=== PATIENT | female | born 1990 | race Caucasian/White ===

== ENCOUNTER 2025-04-23 10:10 | Outpatient (AMB) | payer OTHER, SELFPAY ==
--- NOTE | 2025-04-23 10:25 | MHC.OFFVIS ---
Intake Visit Reasons: 6 month fu Allergies clarithromycin (From BIAXIN) Allergy (Unknown, Unverified 04/23/25 10:27) NAUSEA & VOMITING Medication List - Last Reconciled 04/23/25 by Nataliya Torres CNP bupropion HCl XL 150 mg PO QAM cetirizine (Zyrtec) 10 mg PO DAILY PRN cholecalciferol (vitamin D3) 25 mcg PO DAILY famotidine (Pepcid) 20 mg PO DAILY levothyroxine 50 mcg PO DAILY norethindrone (contraceptive) 0.35 mg PO DAILY sertraline 200 mg PO DAILY spironolactone 50 mg PO BID HPI Comments Details: She was doing okay. She was hoping to have her son weaned completely from this month, around his [age] birthday, and was interested in starting medication for FM after that. She had her son (Wilmer) on 05/04/2022. Fibromyalgia pains were about the same. Some pains to neck and shoulders. Occasional numbness and mild weakness in hands that comes and goes, L > R, was better. Occasional exacerbations of LBP with radiation down either right or left leg, usually flares ups without specific trigger every 3-4 months with burning-type pain that can last between 1-7 days, stretching helps some. Brain fog and concentration difficulties are better, comes and goes. 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 Mood was okay, has not started with therapist yet. Sleep was okay, not using CPAP. h/o pain to back, neck, shoulders, arms, legs, sore muscles, and fatigue since 2013. Diagnosed with fibromyalgia by PCP in 2017. RA/autoimmune came back negative. Tried multiple medications in the past, Lyrica (75mg BID) helped, stopped after 9 months due to change of insurance and . Side effects with amitriptyline (tired), gabapentin (headaches), and venlafaxine (withdrawal symptoms). [facility] Medical History (Updated 04/23/25 @ 10:27 by Nataliya Torres CNP) Carpal tunnel syndrome, bilateral upper limbs Carpal tunnel syndrome Fibromyalgia Anxiety Review of Systems Const Denies chills, Denies daytime sleepiness, Reports difficulty sleeping, Denies fatigue, Denies fever(s), Denies frequent falls, Denies headache(s), Denies increased appetite, Denies poor appetite, Denies snoring, Denies weakness, Denies weight gain and Denies weight loss Eyes Denies loss of vision ENT Denies vertigo, Denies dizziness, Denies headache(s) and Reports neck pain Card Denies chest pain at rest, Denies chest pain with activity, Denies syncope, Denies leg edema, Denies palpitations, Denies dyspnea and Denies dyspnea on exertion Resp Denies cough, Denies dyspnea, Denies dyspnea on exertion and Denies snoring GI Denies abdominal pain, Denies constipation, Denies heartburn, Denies diarrhea and Denies nausea Denies urinary frequency, Denies urinary incontinence and Denies urinary urgency Musc Denies abnormal gait, Reports back pain, Reports myalgias, Reports arthralgias, Reports neck pain, Reports numbness and Reports tingling Neuro Denies abnormal gait, Denies vertigo, Denies dizziness, Denies syncope, Denies frequent falls, Denies headache(s), Denies lack of coordination, Denies loss of vision, Denies memory loss, Reports numbness, Denies Other visual disturbances, Denies restless legs, Denies seizure-like activity, Reports tingling, Denies paresthesias, Denies tremor(s) and Denies weakness Psych Reports anxiety, Denies depression, Denies auditory hallucinations, Denies memory loss and Denies visual hallucinations Endo Denies fatigue and Denies palpitations Physical Exam Const Other: General Appearance:? normal, in no acute distress. Heart:? S1, S2 normal, no murmurs. Lungs:? clear anteriorly and posteriorly. Musculoskeletal:? normal. Extremities:? no edema. Psych:? alert, oriented, cognitive function intact, cooperative with exam. Neuro Other: Abnormal Neurological Findings: Generalized LUE weakness 5-/5, L finger spread 5-/5.?? Mental Status: alert and oriented X 3. Normal attention, orientation, memory, and affect. Cranial Nerves: Pupils are equal, round, and reactive to light. External ocular muscles are intact. Visual nguyen are full, no ptosis. Face is symmetrical, no facial weakness or droop. Facial sensations are normal. Tongue protrudes in midline. Palate elevates symmetrically. Shoulder shrugging is normal Motor Examination: As above, otherwise normal muscle tone, bulk and strength. No atrophy or fasciculations. No drift of the extended upper extremities. DTR 2+. Plantars are flexor. Sensory Exam: Normal light touch, temperature, pinprick, vibration, and joint-position sensations. Rhomberg sign is absent. Coordination: No ataxia. No titubation. Gait Exam: Within normal limits. Cerebellar Signs: [id number] and xcgs-bz-[id number] is normal. No dysdiadochokinesia. Extrapyramidal System: No tremor, rigidity with normal facial expressions. No bradykinesia. No bradyphrenia. Normal arm swing and posture. No propulsion or retropulsion. Speech: Normal. No dysphasia or dysarthria. Results Reviewed Results Reviewed: NCV/EMG ALL 12/12/18 Normal motor and sensory nerve conduction velocities in the upper and lower extremities. Normal EMG in the right C5-T1 and right L4-S1 innervated muscles. Assessment & Plan Assessment & Plan (1) Fibromyalgia: Code(s): M79.7 - Fibromyalgia Category: Medical Plan: She was still her son, but was hoping to have her son weaned completely from this month. She was interested in starting medication for FM when she was done . Follow up when done to discuss medications. She tried amitriptyline, venlafaxine, and gabapentin in the past with side effects. She tried Lyrica in the past, which worked well, and was stopped due to and . Plan Side effects with amitriptyline (tired), gabapentin (headaches), and venlafaxine (withdrawal symptoms). Tried Lyrica in the past, which worked well - but stopped due to Coding Level of Care Code Est Pt Level 3 (95298) Diagnoses Fibromyalgia M79.7
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
== END 2025-04-23 10:37 | disposition home or self-care (01) ==
LOC: HO.HSM 10:11
PROVIDERS: PCP Physician Assistant Medical; Visit Provider Registered Nurse
DX: M79.7 Fibromyalgia (principal)
CPT/HCPCS: 99213

== ENCOUNTER 2025-07-23 09:44 | Outpatient (AMB) | payer OTHER, SELFPAY ==
--- NOTE | 2025-07-23 10:10 | A.OFFVIS_ITS ---
Intake Visit Reasons: 2M FM Allergies clarithromycin (From BIAXIN) Allergy (Unknown, Unverified 04/23/25 10:27) NAUSEA & VOMITING Medication List - Last Reconciled 07/23/25 by Nataliya Torres CNP bupropion HCl XL 150 mg PO QAM cetirizine (Zyrtec) 10 mg PO DAILY PRN cholecalciferol (vitamin D3) 25 mcg PO DAILY famotidine (Pepcid) 20 mg PO DAILY levothyroxine 50 mcg PO DAILY norgestimate-ethinyl estradiol 0.18/0.215/0.25 mg-0.025 mg (Tri-Lo-Demetria) 1 tab PO DAILY pregabalin 75 mg orally 1 tablet at bedtime x1 week, then 1 tablet twice a day; 30 days sertraline 200 mg PO DAILY spironolactone 100 mg PO DAILY HPI Comments Details: She was here to discuss starting medication for fibromyalgia. She was no longer her son and she was not considering at this time. She has generalized body pains, more pain to neck and shoulders. Pain was worse with cold and rainy weather. Hands still feel weak at times, but numbness was better. Occasional exacerbations of LBP with radiation down either leg without specific trigger continue about every 3-4 months. Last flare was about 1 month ago with pain down right leg for about 4 days. Mood was okay. Sleep was okay. She had her son (Wilmer) on 05/04/2022. Fibromyalgia pains were about the same. Exacerbations of LBP with radiation down either leg, usually flare-up without specific trigger every 3-4 months with burning-type pain that can last between 1-7 days, stretching helps some. Brain fog and concentration difficulties are better. 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 Sleep was okay, not using CPAP. h/o pain to back, neck, shoulders, arms, legs, sore muscles, and fatigue since 2013. Diagnosed with fibromyalgia by PCP in 2017. RA/autoimmune came back negative. Tried multiple medications in the past, Lyrica (75mg twice a day) helped, stopped after 9 months due to change of insurance and . Side effects with amitriptyline (drowsiness), gabapentin (headaches), and venlafaxine (did not help and had withdrawal symptoms of dizziness and weakness if she missed a dose). [facility] Medical History (Updated 04/23/25 @ 10:27 by Nataliya Torres, COLETTE) Carpal tunnel syndrome, bilateral upper limbs Carpal tunnel syndrome Fibromyalgia Anxiety Review of Systems Const Denies chills, Denies daytime sleepiness, Reports difficulty sleeping, Denies fatigue, Denies fever(s), Denies frequent falls, Denies headache(s), Denies increased appetite, Denies poor appetite, Denies snoring, Denies weakness, Denies weight gain and Denies weight loss Eyes Denies loss of vision ENT Denies vertigo, Denies dizziness, Denies headache(s) and Reports neck pain Card Denies chest pain at rest, Denies chest pain with activity, Denies syncope, Denies leg edema, Denies palpitations, Denies dyspnea and Denies dyspnea on exertion Resp Denies cough, Denies dyspnea, Denies dyspnea on exertion and Denies snoring GI Denies abdominal pain, Denies constipation, Denies heartburn, Denies diarrhea and Denies nausea Denies urinary frequency, Denies urinary incontinence and Denies urinary urgency Musc Denies abnormal gait, Reports back pain, Reports myalgias, Reports arthralgias, Reports neck pain, Reports numbness and Reports tingling Neuro Denies abnormal gait, Denies vertigo, Denies dizziness, Denies syncope, Denies frequent falls, Denies headache(s), Denies lack of coordination, Denies loss of vision, Denies memory loss, Reports numbness, Denies Other visual disturbances, Denies restless legs, Denies seizure-like activity, Reports tingling, Denies paresthesias, Denies tremor(s) and Denies weakness Psych Reports anxiety, Denies depression, Denies auditory hallucinations, Denies memory loss and Denies visual hallucinations Endo Denies fatigue and Denies palpitations Physical Exam Const Other: General Appearance:? normal, in no acute distress. Heart:? S1, S2 normal, no murmurs. Lungs:? clear anteriorly and posteriorly. Musculoskeletal:? normal. Extremities:? no edema. Psych:? alert, oriented, cognitive function intact, cooperative with exam. Neuro Other: Abnormal Neurological Findings: Generalized LUE weakness 5-/5, L finger spread 5-/5.?? Mental Status: alert and oriented X 3. Normal attention, orientation, memory, and affect. Cranial Nerves: Pupils are equal, round, and reactive to light. External ocular muscles are intact. Visual nguyen are full, no ptosis. Face is symmetrical, no facial weakness or droop. Facial sensations are normal. Tongue protrudes in midline. Palate elevates symmetrically. Shoulder shrugging is normal Motor Examination: As above, otherwise normal muscle tone, bulk and strength. No atrophy or fasciculations. No drift of the extended upper extremities. DTR 2+. Plantars are flexor. Sensory Exam: Normal light touch, temperature, pinprick, vibration, and joint-position sensations. Rhomberg sign is absent. Coordination: No ataxia. No titubation. Gait Exam: Within normal limits. Cerebellar Signs: Tysgce-hw-[id number] is okay. Extrapyramidal System: No tremor, rigidity with normal facial expressions. No bradykinesia. No bradyphrenia. Normal arm swing and posture. No propulsion or retropulsion. Speech: Normal. Results Reviewed Results Reviewed: NCV/EMG ALL 12/12/18 Normal motor and sensory nerve conduction velocities in the upper and lower extremities. Normal EMG in the right C5-T1 and right L4-S1 innervated muscles. Assessment & Plan Assessment & Plan (1) Fibromyalgia: Code(s): M79.7 - Fibromyalgia Category: Medical Plan: She was interested in restarting medication for fibromyalgia. She was no longer her son and was not considering at this time. She was previously treated with pregabalin 75mg twice a day which worked well, but was stopped due to and . She tried and failed multiple medications in the past, including amitriptyline, gabapentin, and venlafaxine. Start pregabalin 75mg 1 tablet at bedtime x1 week, then 1 tablet twice a day, use/side effects reviewed. Follow up in 3 months or sooner as needed. Plan Side effects with amitriptyline (tired), gabapentin (headaches), and venlafaxine (withdrawal symptoms). She tried Lexapro in the past which did not help. Tried Lyrica in the past, which worked well - but stopped due to Medications: New pregabalin 75 mg orally 1 tablet at bedtime x1 week, then 1 tablet twice a day; 60 caps 2RF 30 days Coding Level of Care Code Est Pt Level 4 (78276) Diagnoses Fibromyalgia M79.7
--- OUTSIDE RECORDS SUMMARY | 2025-07-23 10:46 | XMS_ITS | Encounter Summary ---
Author Organization [facility] Address [address] [place] [address] [place] [id number] Phone Care Team Providers Care Health Care Administrator Name Role Phone Jaxson Rivas Primary Care Provid er Encounter Details Date Type Department Care Team (Late st Contact Info) Description 07/27/2021 Transcribe Orders Virtual Department [address] [place] [address] Nataliya Ibanez MD [address] [place] [address] [email or web address] Encounter for laboratory testing for COVID-19 virus (Primary Dx); Exposure to confirmed case of COVID-19 Social History Tobacco Use Types Packs/Day Years Used Date Smoking Tobacco: Never Assessed Comments Unknown Sex and Gender Information Value Date Recorded Sex Assigned at Female 04/02/2021 4:00 PM EDT Legal Sex Female 1:53 PM EDT Gender Identity Female 04/02/2021 4:00 PM EDT Sexual Orientation Straight 04/02/2021 4: 00 PM EDT documented as of this encounter Plan of Treatment Not on file documented as of this encounter Visit Diagnoses Diagnosis Encounter for laboratory testing for COVID-19 virus- Primary Exposure to confirmed case of COVID-19 documented in this encounter Additional Health Concerns Infection Onset Date Last Indicated Resolved Time CoV-Exposed Comment:Recent close contact documented in the COVID-19 PCR/PRO order 07/27/2021 07/27/2021 08/11/2021 1:[address] documented as of this encounter Care Teams Health Care Administrator Relationship Specialty Start Date End Date Jaxson Rivas PA [address] [place] [address] PCP - General Unknown Provider Specialty 03/31/21 documented as of this encounter Additional Source Comments The information contained in this document represents components of the legal health record. It is not the complete legal health record.[facility]
--- OUTSIDE RECORDS SUMMARY | 2025-07-23 10:46 | XMS_ITS | Encounter Summary ---
Author Organization [facility] Address [address] [facility] [address] [place] [address] Phone Care Team Providers Care Waste Machine Operator Name Role Phone Jaxson Rivas Primary Care Provid er Encounter Details Date Type Department Care Team (Late st Contact Info) Description 03/16/2022 Transcribe Orders [facility] [address] [place] [address] Jaxson Rivas PA [address] [place] [address] Hypothyroidism, unspecified type (Primary Dx); Anxiety; Routine general medical examination at a health care facility Social History Tobacco Use Types Packs/Day Years Used Date Smoking Tobacco: Former Cigarettes Q uit: 09/03/2013 Smokeless Tobacco: Former Quit: 06/12/2015 Alcohol Use Standard Drinks/Week Comments Not Currently 0 (1 standard drink = 0.6 oz pur e alcohol) Comments Yes Sex and Gender Information Value Date Recorded Sex Assigned at Female 04/02/2021 4:00 PM EDT Legal Sex Female 1:53 PM EDT Gender Identity Female 04/02/2021 4:00 PM EDT Sexual Orientation Straight 04/02/2021 4: 00 PM EDT documented as of this encounter Plan of Treatment Not on file documented as of this encounter Results * (ABNORMAL) Lipid panel (03/16/2022 3:02 PM EDT) HDL 56 mg/dL [facility] Comment: Interpretation <40 mg/dL: Low HDL cholesterol (major risk factor for CHD) Greater than or equal to 60 mg/dL: High HDL cholesterol ( negative risk factor for CHD) HDL - cholesterol is affected by a number of factors, e.g. smoking, excerise, hormones, sex and age. CHOLESTEROL 214 0 - 240 mg/dL [facility] TRIGLYCERIDES 228(H) 30 - 160 mg/dL [facility] LDL 112 50 - 129 mg/dL [facility] Comment: LDL levels in terms of risk for coronary heart disease: <100 mg/dL: Optimal 100-129 mg/dL: Near or above optimal 130-159 mg/dL: Borderline high 160-189 mg/dL: High >190 mg/dL: Very High CARDIAC RISK RATIO 3.8 3.3 - 4.4 C [facility] Blood 03/16/2022 3:02 PM EDT 03/16/2022 6:47 PM EDT Jaxson [facility] LAB BLOOD BKR KISHOR BLES Final Result [facility] [address] [place] [address] * (ABNORMAL) Comprehensive metabolic panel (03/16/2022 3:02 PM EDT) SODIUM 133 133 - 146 mmol/L [facility] POTASSIUM 3.6 3.3 - 5.1 mmol/L [facility] CHLORIDE 98 96 - 108 mmol/L [facility] CO2 20(L) 21 - 35 mmol/L [facility] BUN 9 6 - 19 mg/dL [facility] CREATININE 0.50 0.5 - 1.5 mg/dL [facility] GLUCOSE 80 70 - 99 mg/dL [facility] ALBUMIN 3.7(L) 3.9 - 4.8 g/dL [facility] TOTAL PROTEIN 6.6 6.5 - 8.0 g/dL [facility] CALCIUM 9.2 8.4 - 10.3 mg/dL [facility] ALKALINE PHOSPHATASE 79 39 - 117 U/L [facility] TOTAL BILIRUBIN 0.2 0.0 - 1.2 mg/dL [facility] AST 13 0 - 37 U/L [facility] ALT 10 0 - 40 U/L [facility] GLOBULIN 2.9 1 - 4.8 g/dL [facility] EGFR >120 >59 mL/min/1.7 3m2 [facility] Comment:Estimated glomerular filtration rate calculated using the CKD-EPI refit equation. ANION GAP 19 10 - 20 mmol/L [facility] Blood 03/16/2022 3:02 PM EDT 03/16/2022 6:55 PM EDT Jaxson [facility] LAB BLOOD BKR ORDERA BLES Final Result Performing Organization Address City/State/[facility] Co de Phone Number [address] [address] documented in this encounter Visit Diagnoses Diagnosis Hypothyroidism, unspecified type- Primary Anxiety Anxiety state, unspecified Routine general medical examination at a health care facility documented in this encounter Care Teams Waste Machine Operator Relationship Specialty Start Date End Date Jaxson Rivas PA [address] [place] [address] PCP - General Unknown Provider Specialty 03/31/21 documented as of this encounter Additional Source Comments The information contained in this document represents components of the legal health record. It is not the complete legal health record.[facility]
--- OUTSIDE RECORDS SUMMARY | 2025-07-23 10:46 | XMS_ITS | Clinical Summary ---
Author Organization [facility] [address] [place] [address] Address [address] [place] [address] Phone Care Team Providers Care Certified Prosthetist Vice President Name Role Phone Jaxson Rivas Primary Care Provider [phone] Allergies Active Allergy Reactions Criticality Noted Date Comments Clarithromycin Nausea And Vomiting Low 04/06/2016 Medications VIT 40-AUTN-ZVMSA-D TRAN ORAL Active levothyroxine (SYNTHROID, LEVOTHROID) 50 [...] levothyroxine 50mcg daily. Labs drawn 09-29-21 at [facility] - Dr Tolbert. Pt will notify us [...] PCP Obstructive sleep apnea 01/06/2021 Overview (10/25/2023): [facility] Home Sleep Apnea Test: Date 12/28/2020; Wt [...] Dx approx 5 yrs ago Managed at [facility] neurology MD P[place]on Was on lyrica in the past with good results but d/c when started trying to get Anxiety 04/06/2016 Overview (10/25/2023): 08-27-21 pt d/c lexapro and started zoloft 50mg . Managed by pcp at [facility] Immunizations Immunization Administration Dates Next Due Hepatitis B (Eqelako-O-Nhvjg , Recombivax HB-Adult) 19yo and older 09/08/2016,05/11/2016,04/08/2016 [...] Uncle 2 Prostate cancer Uncle 2 paternal malini e Relation Name Status Comments Father Alive Maternal Grandfather Maternal Grandmother Mother Alive Paternal Grandmother Sister 1 Alive Sister 2 Alive Uncle 1 Uncle 2 Alive Social History Tobacco Use Types Packs/Day Years Used Date Smoking Tobacco: Former Cigarettes 0.5 Q uit: 09/21/2013 Smokeless Tobacco: Former Quit: [...] do you feel lonely or isolated from ose around you? Often 09/03/2024 Food Risk [...] care for your loved ones. For example, child development associate teacher or elderly care for an older adult? [...] Date Recorded What is your living situation? Unrecognized valu e 09/03/2024 Comments Unknown Sex and Gender Information [...] 8:45 AM EST Office Visit Adult Medicine [address] [phone] [address]axson Rivas [address] [phone] Health Maintenance Due Date Last Done Comments HPV Vaccines (1 - 3-dose SCDM series) 02/09/2015 HIV Screening 07/31/2022 Hepatitis C Screening 07/31/2022 COVID-19 Vaccine ( season) 2025 09/23/2022, 03/19/2022, 01/22/2022 Influenza Vaccine (#1) 2025 , 07/01/2023, 07/03/2022, Additional history exists Cervical Cancer Screening: Pap Smear 08/31/2025 08/31/2022 Social Influencers of Health Screening 09/03/2025 09/03/2024, 09/28/2018 Cholesterol Screening (Lipid Panel) 11/19/2025 11/19/2020 DTaP,Tdap,and Td Vaccines (3 - Td or Tdap) 02/16/2032 02/15/2022, 04/06/2016 RSV Immunization Adult Patients (1 - 1-dose 75+ series) 02/09/2063 Hepatitis B Vaccines Completed 09/08/2016, 05/11/2016, 04/08/2016 [...] Procedure Name Priority Date/Time Associated Diagnosis Comments PAP SMEAR Routine 08/31/2022 LIPID PANEL Routine 11/19/2020 from Last 3 Months or Most Recently Relevant to Health Maintenance Results * Pap Smear (08/31/2022) Pap smear normal Historical Provider HEALTH MAINTENANCE Final Result * Lipid panel (11/19/2020) LDL/HDL Ratio 4 Triglycerides 135 mg/dL Cholesterol 177 mg/dL HDL 44 mg/dL LDL Cholesterol 106 mg/dL Blood Venous blood specimen / Unknown Historical Provider LAB BLOOD ORDERABLES Lona l Result from Last 3 Months or Most Recently Relevant to Health Maintenance Insurance [facility] Care Teams Certified Prosthetist Vice President Relationship Specialty Start Date End Date Jaxson Rivas PA [address] [place] [address] PCP - General Internal Medicine 06/25/20
== END 2025-07-23 10:29 | disposition home or self-care (01) ==
LOC: HO.HSM 09:45
PROVIDERS: PCP Physician Assistant Medical; Visit Provider Registered Nurse
DX: M79.7 Fibromyalgia (principal)
CPT/HCPCS: 99214